=== PATIENT | female | born 1935 | race Caucasian/White ===

== ENCOUNTER → 2024-09-08 08:17 | Outpatient (REF) | payer MEDICARE, OTHER, SELFPAY ==
[2024-09-08 10:10] LABS: Blood Urea Nitrogen 23 mg/dl (7-17); Calcium 9.6 mg/dl (8.4-10.2); Carbon Dioxide 26 mmol/L (22-30); Chloride 100 mmol/L (98-107); Glucose 256 mg/dl (70-99); Magnesium 1.9 mg/dl (1.6-2.3); NT-proBNP 242 pg/ml; Potassium 4.7 mmol/L (3.5-5.1); Sodium 137 mmol/L (135-145); eGFR > 60.00
== END ==
LOC: RAD 08:17
PROVIDERS: ATTENDING PHYSICIAN Internal Medicine Cardiovascular Disease; FAMILY PHYSICIAN Family Medicine
DX: R60.0 Localized edema (principal)
CPT/HCPCS: 36415; 80048; 83735; 83880; 93306; 93970